=== PATIENT | male | born 1975 | race Native Hawaiian/Other Pacific Islander ===

== ENCOUNTER 2018-07-17 08:15 | Emergency (ER) | payer OTHER ==
[~2018-07-17] VITALS: Ht 172.7 cm; Wt 117.9 kg
[2018-07-17] MEDS ORDERED: AUGMENTIN 875-1 EACH PO (10:39)
[2018-07-17 10:53] VITALS: BP 139/91
== END 2018-07-17 10:54 | disposition home or self-care (01) ==
LOC: M.ERS 08:15
DX: N49.2 Inflammatory disorders of scrotum (principal)

== ENCOUNTER 2019-01-10 23:06 | Emergency (ER) | payer OTHER ==
[~2019-01-10] VITALS: Ht 175.3 cm; Wt 112.5 kg
[~2019-01-10 23:06] MED LIST: AUGMENTIN 875-1 EACH PO
[2019-01-10] MEDS ORDERED: ZANTAC 150MG T150 MG PO (23:18)
[2019-01-10 23:35] LABS: ABSOLUTE BASOPHILS 0.1 thou/uL (0.0-0.2); ABSOLUTE EOSINOPHILS 0.1 thou/uL (0.0-0.7); ABSOLUTE LYMPHOCYTES 2.8 thou/uL (0.8-5.3); ABSOLUTE NEUTROPHILS 6.6 thou/uL (1.6-8.1); BASOPHILS 0.6 %; EOSINOPHILS 1.2 %; HEMATOCRIT 47.7 % (42.0-52.0); HEMOGLOBIN 15.9 gm/dL (14.0-18.0); LYMPHOCYTES 26.1 %; MCHC 33.3 g/dL (28.0-37.0); MCV 93.1 fL (80.0-100.0); MONOCYTES 9.6 %; MPV 8.9 fl. (7.2-11.1); NUCLEATED RBCS 0 /100WBC; PLATELET COUNT* 285 thou/uL (150-400); POLYS 62.5 %; RBC 5.13 mil/uL (4.50-6.00); RDW-CV 12.7 % (10.5-14.5); WBC 10.6 thou/uL (4.0-11.0)
[2019-01-10 23:43] LABS: CALCIUM 8.6 mg/dL (8.5-10.1); CREATININE 1.1 mg/dL (0.6-1.3); POTASSIUM 4.2 mmol/L (3.5-5.1)
[2019-01-10 23:48] LABS: ALBUMIN 3.4 g/dL (3.4-5.0); TOTAL BILIRUBIN 0.3 mg/dL (<0.1-1.0); TOTAL PROTEIN 7.5 g/dL (6.4-8.2)
[2019-01-11] MEDS ORDERED: NORCO 5-325 TA1 EAC1 PO (03:15)
[2019-01-11 03:32] VITALS: BP 112/56
== END 2019-01-11 03:32 | disposition home or self-care (01) ==
LOC: M.ERS 23:06
PROVIDERS: Emergency Medicine Emergency Medical Services
DX: K46.9 Unspecified abdominal hernia without obstruction or gangrene (principal)

== ENCOUNTER 2020-02-25 16:44 | Emergency (ER) | payer OTHER ==
[~2020-02-25] VITALS: Ht 172.7 cm; Wt 106.6 kg
[~2020-02-25 16:44] MED LIST changes: +NORCO 5-325 TA1 EAC1 PO; +ZANTAC 150MG T150 MG PO
[2020-02-25 16:55] VITALS: BP 142/92
[2020-02-25 17:33] LABS: INFLUENZA A ANTIGEN Negative (Negative); INFLUENZA B ANTIGEN Negative (Negative)
[2020-02-25] MEDS ORDERED: APAP W/CODEINE1 TA2 PO (18:07)
== END 2020-02-25 18:20 | disposition home or self-care (01) ==
LOC: M.ERS 16:44
PROVIDERS: Physician Assistant
DX: J06.9 Acute upper respiratory infection, unspecified (principal); Z20.828 Contact with and (suspected) exposure to other viral communicable diseases